=== PATIENT | female | born 1940 | race Caucasian/White ===

== ENCOUNTER 2019-02-03 16:34 | Emergency (ER) | payer MEDICARE, OTHER ==
--- NOTE | 2019-02-03 18:13 | CT ---
[id number] CT/CT Pelvis WO IV Exam: CT Pelvis WO IV Clinical Data: TRAUMA COMPARISON: NO PREVIOUS SIMILAR EXAM IS AVAILABLE FINDINGS: No fracture is seen. There is no hematoma identified. IMPRESSION: NO FRACTURE SEEN. Joel Ferreira MD 02/03/19 [id number] Thank you for allowing us to participate in the care of your patient.
--- NOTE | 2019-02-03 18:21 | EDM.PDOC ---
ED HPI GENERAL MEDICAL PROBLEM - General Chief Complaint: Back Pain or Injury Stated Complaint: PAIN FROM FALL Time Seen by Provider: 02/03/19 17:04 Source of Information: Reports: Patient, Family History Limitations: Reports: No Limitations - History of Present Illness INITIAL COMMENTS - FREE TEXT/NARRATIVE: Pt fell last week and has pain across low back and pelvis Was seen in clinic and xrays of pelvis were negative but right hand xray showed metacarpal fracture Pt states her hand does not hurt currently but still has pain in pelvis Is able to ambulate with walker Does usually use walker for ambulation Onset: Gradual Duration: Week(s):, Getting Worse Location: Reports: Pelvis Quality: Reports: Ache, Throbbing Severity: Moderate Improves with: Reports: Immobilization Worsens with: Reports: Movement Context: Reports: Trauma Associated Symptoms: Reports: No Other Symptoms 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/ right hip Pain Score (Numeric/FACES): 0 - Related Data Allergies Allergy/AdvReac Type Severity Reaction Status Date / Time No Known Allergies Allergy Verified 02/03/19 16:49 Home Meds: Home Meds Acetaminophen [Tylenol] 650 mg PO BID 02/03/19 [History] Calcium Carbonate [Calcium] 330 mg PO DAILY 02/03/19 [History] Cholecalciferol (Vitamin D3) [Vitamin D3] 1,000 unit PO DAILY 02/03/19 [History] Citalopram [Citalopram HBr] 40 mg PO DAILY 02/03/19 [History] Clopidogrel [Plavix] 75 mg PO DAILY 02/03/19 [History] Folic Acid 0.8 mg PO DAILY 02/03/19 [History] Furosemide [Lasix] 20 mg PO DAILY 02/03/19 [History] Pantoprazole Sodium [Protonix] 40 mg PO DAILY 02/03/19 [History] Potassium Chloride 10 meq PO DAILY 02/03/19 [History] atorvaSTATin Calcium [Lipitor] 40 mg PO DAILY 02/03/19 [History] Past Medical History Cardiovascular History: Reports: Heart Failure Neurological History: Reports: CVA Psychiatric History: Reports: Anxiety, Dementia - Past Surgical History Cardiovascular Surgical History: Reports: Pacer Social & Family History - Tobacco Use Smoking Status *Q: Former Smoker Used Tobacco, but Quit: Yes Month/Year Tobacco Last Used: 1970 - Recreational Drug Use Recreational Drug Use: No ED ROS GENERAL - Review of Systems Review Of Systems: See Below Respiratory: Reports: No Symptoms Cardiovascular: Reports: No Symptoms GI/Abdominal: Reports: No Symptoms Musculoskeletal: Reports: Back Pain ED EXAM,LOWER BACK PAIN/INJURY - Physical Exam Exam: See Below Back Exam: Other (Low lumbar area tender Pelvis mildly tender) Course - Vital Signs Last Recorded V/S: Last Vital Signs Temp 37.2 C 02/03/19 16:49 Pulse 97 02/03/19 16:49 Resp 20 02/03/19 16:49 BP 124/71 02/03/19 16:49 Pulse Ox 97 02/03/19 16:49 - Radiology Interpretation Free Text/Narrative:: CT per radiologist No fracture - Re-Assessments/Exams Free Text/Narrative Re-Assessment/Exam: 02/03/19 18:19 CT results d/w patient and family Departure - Departure Time of Disposition: 18:30 Disposition: Home, Self-Care 01 Condition: Good Clinical Impression: Pelvic pain Back pain Qualifiers: Back pain location: low back pain Chronicity: acute Back pain laterality: midline Sciatica presence: without sciatica Qualified Code(s): M54.5 - Low back pain - Discharge Information *PRESCRIPTION DRUG MONITORING PROGRAM REVIEWED*: Not Applicable *COPY OF PRESCRIPTION DRUG MONITORING REPORT IN PATIENT PARISH: Not Applicable Referrals: Italia Gutierrez [employer] [Primary Care Provider] - Additional Instructions: Activity as tolerated Follow up in clinic Tylenol as needed
== END 2019-02-03 18:31 | disposition home or self-care (01) ==
LOC: VM.ED 16:34
DX: R10.2 Pelvic and perineal pain (principal); M54.5 Low back pain; I50.9 Heart failure, unspecified; F41.9 Anxiety disorder, unspecified; Z87.891 Personal history of nicotine dependence; Z79.899 Other long term (current) drug therapy
CPT/HCPCS: 72192; 99283-25